=== PATIENT | female | born 1985 | race Caucasian/White ===

== ENCOUNTER → 2020-06-29 04:59 | Outpatient (CLI) | payer OTHER, SELFPAY ==
[2020-06-29 19:03] LABS: SARS-CoV-2 RNA PCR Negative
== END ==
PROVIDERS: Visit Provider Student in an Organized Health Care Education/Training Program
DX: Z01.812 Encounter for preprocedural laboratory examination (principal); Z20.822 Contact with and (suspected) exposure to COVID-19
CPT/HCPCS: C9803; U0003; U0005

== ENCOUNTER 2020-07-01 01:56 | Day surgery (SDC) | payer OTHER, SELFPAY ==
[2020-06-28 17:01] VITALS: BMI 29.1
--- NOTE | 2020-06-30 10:03 | PM.IMHP ---
H&P: HPI History of Present Illness Date/Time: 06/30/20 10:03 35-year-old who presents for suction D&C for incomplete . Patient initially presented to the office for viability ultrasound. Patient states she had positive home test and pelvic Shantelle. hormone levels were drawn on 06/03/20 and were found to be 51,700. Pelvic ultrasound in the office showed a gestational sac but no yolk sac or embryo. Patient then went on to begin having vaginal bleeding. Follow-up beta hCG level was 8540. patient elected to have surgical management of incomplete Chief Complaint: spontaneous Review of Systems Cardiovascular: Cardiovascular: Denies chest pain, Denies leg edema, Denies palpitations, Denies dyspnea and Denies dyspnea on exertion Respiratory: Respiratory: Denies cough, Denies dyspnea and Denies dyspnea on exertion Gastrointestinal: Gastrointestinal: Denies abdominal pain, Denies constipation, Denies diarrhea, Denies nausea and Denies vomiting Genitourinary: Genitourinary: Denies hematuria, Denies urinary frequency, Denies dysuria, Denies pelvic pain, Denies urinary incontinence and Denies vaginal discharge Neurologic: Reports system reviewed and no additional complaints, except as documented Psychiatric: Psychiatric: Reports no additional psychiatric complaints Endocrine: Endocrine: Denies palpitations PMFSH Social History Social History Years smoked: 6 Smoking status: Current every day smoker Tobacco type: cigarettes Spiritual care concerns: No Meds Home Medications and Allergies Home Medications Medication Instructions Recorded Confirmed Type citalopram [Celexa] 20 mg PO HS 06/28/20 06/28/20 History dextroamphetamine-amphetamine 30 mg PO DAILY 06/28/20 06/28/20 History [Adderall XR] dextroamphetamine-amphetamine 15 mg PO DAILY 06/28/20 06/28/20 History [Adderall] lamotrigine 300 mg PO HS 06/28/20 06/28/20 History ondansetron 4 mg PO PRN PRN 06/28/20 06/28/20 History sumatriptan succinate [Imitrex] 100 mg PO PRN PRN 06/28/20 06/28/20 History trazodone 100 mg PO HS 06/28/20 06/28/20 History Allergies Allergy/AdvReac Type Severity Reaction Status Date / Time aspirin Allergy Numbness Verified 06/28/20 17:15 codeine Allergy Rash Verified 06/28/20 17:15 Exam Const: General: no acute distress Eyes: EOM: EOMs intact bilaterally Neck: Neck: supple Thyroid: thyroid normal Chest: Breast/axilla inspection: normal inspection of the breasts Breast/axilla palpation: normal palpation of the breasts, normal palpation of the axillae and no axillary lymphadenopathy Resp: Effort & Inspection: normal respiratory effort Auscultation: clear to auscultation bilaterally Cardio: Rate: regular rate Rhythm: regular rhythm GI: Inspection: non-distended GI Palp: Yes Soft to palpation, No Tenderness to palpation present (GI) and No Guarding due to palpation present (GI) Auscultation: normal bowel sounds : General: No bladder normal to palpation External Female Exam: normal external appearance Speculum Exam - Vagina: normal vaginal discharge and No vaginal bleeding Speculum Exam - Cervix: nontender Bimanual exam- vagina & uterus: No bladder normal to palpation and No Cervical tenderness present OB/external & speculum: No vaginal bleeding Skin: General skin exam: normal color and no rashes or lesions noted Neuro: Cognition (Neuro): normal cognition Speech: normal speech Extrem: General: normal to inspection and no edema Psych: Mental Status: mental status grossly normal Affect: normal affect Assessment and Plan Assessment and plan (1) Spontaneous : Code(s): O03.9 - Complete or unspecified spontaneous without complication Status: Acute Assessment and Plan: patient reports positive test in March. Beta-hCG level [id number] on 06/03/20 to 8549 on 06/25/20 Rh+ status pelvic US showed gestational s
--- NOTE | 2020-07-01 07:29 | WPDHPUPDATE1 ---
History and Physical Update Update Date/Time: 07/01/20 07:29 History and Physical has been reviewed, including an updated exam of the patient. There are NO changes in the patient's condition. Risks, benefits, and alternatives have been discussed and questions answered. Patient agrees to proceed with procedure.
[2020-07-01] MEDS: ACETAMINOPHEN 500 MG TABLET 1000 MG PO (07:30)
[2020-07-01] MEDS: LACTATED RINGERS 1,000 ML 30 ML IV CONT (07:30)
[2020-07-01 07:42] LABS: Hematocrit 29.9 % (37.0-47.0)
[2020-07-01 07:47] VITALS: BP 102/67; PULSE 91; RESP 18; TEMP 36.6; O2SAT 100
--- NOTE | 2020-07-01 07:55 | WPDANESEPPF ---
Anes - Initial Pre Proc Eval Procedure: Operation Date: 07/01/20 08:30 Proposed Procedures p Suction Dilatation And Curettage - Adilson Bates MD Date/Time: 07/01/20 07:55 Surgeon: Adilson Bates MD Pre Op Diagnosis: Missed AB Patient Data Age: 35 Gender: F Height: 5 ft Weight: 66.35 kg Last Vital Signs Temp 36.6 C 07/01/20 07:47 Pulse 91 07/01/20 07:47 Resp 18 07/01/20 07:47 BP 102/67 07/01/20 07:47 Pulse Ox 100 07/01/20 07:47 Allergies Allergy/AdvReac Type Severity Reaction Status Date / Time aspirin Allergy Numbness Verified 07/01/20 07:45 codeine Allergy Rash Verified 07/01/20 07:45 Home Medications Medication Instructions Recorded Confirmed Type citalopram [Celexa] 20 mg PO HS 06/28/20 07/01/20 History dextroamphetamine-amphetamine 30 mg PO DAILY 06/28/20 07/01/20 History [Adderall XR] dextroamphetamine-amphetamine 15 mg PO DAILY 06/28/20 07/01/20 History [Adderall] lamotrigine 300 mg PO HS 06/28/20 07/01/20 History ondansetron 4 mg PO PRN PRN 06/28/20 07/01/20 History sumatriptan succinate [Imitrex] 100 mg PO PRN PRN 06/28/20 07/01/20 History trazodone 100 mg PO HS 06/28/20 07/01/20 History Laboratory Tests 07/01/20 07:28 Hgb 10.0 g/dL L g/dL (12.0-15.0) Hct 29.9 % L % (37.0-47.0) Patient hx anesthesia problems: none Family hx anesthesia problems: none PMFSH Past Medical History Medical History ADHD Bipolar 1 disorder Social History Social History Years smoked: 6 Smoking status: Current every day smoker Tobacco type: cigarettes Spiritual care concerns: No Anes - Eval Final PreProcedure Day of Procedure 07/01/20 07:55 Patient weight: overweight Heart: regular rate and rhythm Lungs: clear to auscultation Airway: Mallampati scale class III Neurological: alert and oriented Last oral intake: >/= 8 hours ASA classification: III Emergent: no Anesthetic plan: proceed Anesthesia type and monitoring: general GIVS and standard monitoring Informed Consent: The patient's anesthetic plan and its attendant risks and benefits were discussed with the patient/family/POA. Questions were solicited and answers provided to the satisfaction of the patient/family/POA.
--- NOTE | 2020-07-01 08:26 | PM.PROC ---
Procedure Note - Detailed Date of procedure: 07/01/20 Pre-op diagnosis: Missed AB Post-op diagnosis: same Procedure performed: Suction dilation and curettage Description of procedure: Antibiotics: Doxycycline Findings: uterus equal to dates, cervix dilated, intrauterine MAB Complications: none Specimens: endometrial contents- products of conception EBL: 25 mL Indications: Patients was found to have a gestational sac but never developed a yolk sac or pole on pelvic US. Pt was experiencing abdominal cramping and vaginal bleeding. She elected for surgical management via Suction D&C. Procedure: The patient was taken to the operating room after a missed had been noted on on transvaginal ultrasound. The risks, benefits and alternatives of the procedure were reviewed with the patient and informed consent was obtained. The patient was taken to the OR and anesthesia was noted to be adequate. The patient was placed in the dorsolithotomy position. Pelvic exam was performed with findings noted above. The patient was prepped and draped in the usual sterile fashion. Cottrell retractors were placed anteriorly and posteriorly in the vagina and the cervix was grasped with an Tenaculum clamp. A paracervical block was performed. The cervix was dilated further to allow for passage of a 8mm suction curette. The 8mm suction curette was gently advanced to the fundus, suction was activated, and the tip was rotated while being withdrawn to clear the uterus of products. This suction process was repeated 4 additional times due to the quantity of material in the uterus. The sharp curette was introduced and advanced to the fundus to remove any remaining products. The suction curette was reintroduced one final time to ensure all products had been removed. The Tenaculum clamp was removed. Good hemostasis was noted. Instrument, sponge, and sharp counts were correct. Patient tolerated the procedure well and was taken to the recovery room in stable condition. Anesthesia: GLMA Surgeon: Adilson Bates MD Estimated blood loss (mL): 25 Urine output (mL): 25 Drains: No Packing: No Pathology: yes (products of conception ) Complications: No immediate complications Condition: stable Disposition: PACU Findings: intrauterine produts of conception
[2020-07-01 08:30] VITALS: BP 107/68; PULSE 98; RESP 14; O2SAT 96
[2020-07-01 09:00] VITALS: BP 101/66; PULSE 95; RESP 14
[2020-07-01 09:05] VITALS: BP 103/71; PULSE 87; RESP 14
== END 2020-07-01 09:15 | disposition home or self-care (01) ==
PROVIDERS: Visit Provider Student in an Organized Health Care Education/Training Program
PROC: (CPT 59820; principal; 2020-07-01 08:30)
DX: O02.1 Missed abortion (principal); F90.9 Attention-deficit hyperactivity disorder, unspecified type; F31.9 Bipolar disorder, unspecified; F17.210 Nicotine dependence, cigarettes, uncomplicated
CPT/HCPCS: 59820; 36415; 85014; 85018; 85461; 88305; A9270; C9803; J2250; J2704; J3010; J7120; U0003; U0005

== ENCOUNTER 2023-02-25 13:03 | Emergency (ER) | payer OTHER, SELFPAY ==
--- NOTE | ~2023-02-25 | CT_ITS ---
EXAMINATION: CT abdomen pelvis w con DATE: 02/25/2023 18:56 INDICATION: Suprapubic tenderness, nausea, vomiting and diarrhea. Blood in stool. TECHNIQUE: Computed tomography (CT) of the abdomen and pelvis was performed with 100 cc Omnipaque 350 intravenous contrast. The dose-length product was 385.51 mGy-cm. Automated exposure control and iter ative reconstruction technique were employed. COMPARISON: None. FINDINGS: Lung bases unremarkable. Heart size normal. No significant pleural or pericardial effusion. No significant vascular abnormality. There is abnormal thickening of the sigmoid colon with mild niesha rounding inflammatory change, consistent with colitis. Cannot exclude underlying mass. Small amount o f free fluid in the pelvis. No free air. The liver, spleen, pancreas, adrenal glands and kidneys are unremarkable. Gallbladder is present. There are gallstones. No focal lytic or blastic lesions. IMPRESSION: 1. Abnormal thickening of the sigmoid colon, suspicious for colitis, most likely infectious or inflam matory. Underlying mass not excluded. Recommend follow-up clinical evaluation with patient's conditio n permits. 2: Cholelithiasis. Reviewed, dictated and finalized at location A. [facility] IMPRESSION: 1. Abnormal thickening of the sigmoid colon, suspicious for colitis, most likel y infectious or inflammatory. Underlying mass not excluded. Recommend follow-up clinical evaluation with patient's condition permits. 2: Cholelithiasis.
[2023-02-25 13:06] VITALS: BP 115/74; PULSE 120; RESP 20; TEMP 36.7; O2SAT 100
--- NOTE | 2023-02-25 17:59 | ED.GENADULT ---
HPI - General Adult General Chief complaint: Nausea/Vomiting/Diarrhea Stated complaint: vomiting and diarrhea/abd pain/blood in stool Time Seen by Provider: 02/25/23 17:45 Source: patient Mode of arrival: ambulatory Limitations: no limitations History of Present Illness HPI narrative: This is a 37-year-old female who presents to the ED with chief complaint of N/V/D beginning this morning. Reports she when out with friends yesterday and had tacos but no one else has any of the symptoms. Reports abdominal cramping especially in the lower abdomen. Reports it is worse with bowel movements. Reports she has seen a bit of bright red blood in the diarrhea. Denies any fevers, chills, lightheadedness, syncope, chest pain, shortness of breath, urinary problems. Related Data Home Medications Medication Instructions Recorded Confirmed citalopram 20 mg tablet (Celexa) 20 mg PO HS 06/28/20 07/01/20 dextroamphetamine-amphetamine 15 15 mg PO DAILY 06/28/20 07/01/20 mg tablet (Adderall) dextroamphetamine-amphetamine ER 30 mg PO DAILY 06/28/20 07/01/20 30 mg 24hr capsule,extend release (Adderall XR) lamotrigine 150 mg tablet 300 mg PO HS 06/28/20 07/01/20 ondansetron 4 mg disintegrating 4 mg PO PRN PRN Migraine Headache 06/28/20 07/01/20 tablet sumatriptan succinate 100 mg 100 mg PO PRN PRN Migraine Headache 06/28/20 07/01/20 tablet (Imitrex) trazodone 50 mg tablet 100 mg PO HS 06/28/20 07/01/20 Allergies Allergy/AdvReac Type Severity Reaction Status Date / Time aspirin Allergy Numbness Verified 02/25/23 13:08 codeine Allergy Rash Verified 02/25/23 13:08 Review of Systems Review of Systems: All systems as dictated in HPI [facility] Past Medical History Medical History ADHD Bipolar 1 disorder Social History Social History Years smoked: 6 Smoking status: Current every day smoker Tobacco type: cigarettes Spiritual care concerns: No Exam Narrative: GENERAL: Well-appearing, well-nourished, and in no acute distress. HEAD: Normocephalic, atraumatic. EYES: PERRLA and EOMI. ENT: Nares clear, no rhinorrhea or epistaxis. Mucous membranes moist. Oropharynx without tonsillar hypertrophy exudate or other lesions. NECK: Supple. No adenopathy or masses. CHEST: No respiratory distress. Clear to auscultation. No wheezes rales or rhonchi HEART: Regular rate and rhythm. No murmur heard. Normal peripheral pulses. ABDOMEN: Mild suprapubic tenderness. soft, otherwise nontender, nondistended, normal active bowel sounds. Negative peritoneal signs. MSK: Normal range of motion. No edema. SKIN: Warm, dry, no rash. NEURO: Alert and oriented x3. No focal deficits. PSYCH: Normal mood and affect. Course Vital Signs Vital signs: Vital Signs Temperature 98.0 F 02/25/23 13:06 Pulse Rate 120 H 02/25/23 13:06 Respiratory Rate 20 02/25/23 13:06 Blood Pressure 115/74 02/25/23 13:06 Pulse Oximetry 100 02/25/23 13:06 Oxygen Delivery Room Air 02/25/23 13:06 Temperature 98.0 F 02/25/23 13:06 Pulse Rate 101 H 02/25/23 20:22 Respiratory Rate 16 02/25/23 20:22 Blood Pressure 123/87 02/25/23 20:22 Pulse Oximetry 98 02/25/23 20:22 Oxygen Delivery Room Air 02/25/23 13:06 Medical Decision Making [facility] Narrative Medical decision making narrative: This is a 29-year-old female who presents to the ED with chief complaint of N/V/D beginning yesterday. She does note some bright red diarrhea. Vitals show initial tachycardia but hemodynamically stable and afebrile. Exam reveals suprapubic tenderness. Lab work shows mildly elevated white count 11.2, normal CMP. UA shows some red blood cells and bacteria but is contaminated with squamous cells. She is not having any urinary symptoms. CT abdomen/pelvis with IV contrast: 1. Abnormal thickening of the sigmoid colon, susp
[2023-02-25 18:21] LABS: Basophils Percent Auto 0.4 % (0.2-1.2); Eosinophils Absolute Auto 0.1 K/mm3 (0-0.3); Eosinophils Percent Auto 0.8 % (0-4.4); Hematocrit 40.2 % (37.0-47.0); Hemoglobin 12.9 g/dL (12.0-15.0); Immature Granulocyte Absolute 0.03 K/mm3 (0.00-0.031); Immature Granulocyte Percent A 0.3 % (0-0.5); Lymphocytes Absolute Auto 2.28 K/mm3 (0.9-3.2); Lymphocytes Percent Auto 20.4 % (18.3-44.2); Mean Corpuscular HGB Conc 32.1 g/dl (32-36); Mean Corpuscular Volume 87.4 fl (80-100); Mean Platelet Volume 10.1 fl (7.4-10.4); Monocytes Absolute Auto 0.9 K/mm3 (0.1-0.6); Monocytes Percent Auto 7.9 % (2.6-8.5); Neutrophils Absolute Auto 7.9 K/mm3 (1.3-6.7); Neutrophils Percent Auto 70.2 % (45.5-73.1); Platelet Count Result 354 k/mm3 (150-375); Red Cell Distribution Width 14.3 % (11.5-14.5); White Blood Count 11.2 K/mm3 (4.5-10.0)
[2023-02-25] MEDS: SODIUM CHLORIDE 0.9% IV 1,000 ML 999 ML IV CONT (18:27)
[2023-02-25] MEDS: ONDANSETRON INJ 4 MG/2 ML VIAL IV PUSH (18:27)
[2023-02-25 18:28] LABS: Appearance Urine Cloudy (Clear); Bacteria Urine 2+ /hpf; Bilirubin Urine Negative (Negative); Blood Urine 2+ (Negative); Color Urine Yellow (Yellow); Glucose Urine UA Negative (Negative); Ketones Urine Trace mg/dL (Negative); Leukocyte Esterase Ur Negative LEU/UL (Negative); Nitrate Urine Negative (Negative); Non Pathogenic Casts 0-2; Protein Urine Negative (Negative); RBC Urine 21-50 /hpf (0-2); Specific Grav Ur 1.022 (1.001-1.035); Squamous Epithelial Cell Urine Many /hpf (Few); WBC Urine 0-5 /hpf
[2023-02-25 18:30] LABS: Add Urine Microscopic? YES
[2023-02-25 18:37] LABS: Alanine Aminotransferase 21 U/L (6-35); Albumin Level 4.5 g/dL (3.5-5.1); Alkaline Phosphatase 53 U/L (38-126); Anion Gap 8 mmol/L (8-16); Aspartate Amino Transferase 27 U/L (14-36); Bilirubin,Total 0.7 mg/dL (0.2-1.3); Blood Urea Nitrogen 10 mg/dL (7-17); Calcium 9.2 mg/dL (8.4-10.2); Carbon Dioxide 27 mmol/L (22-30); Chloride 103 mmol/L (98-107); Estimated CRCL calculation 81 ml/min; Estimated Glomerular Filt Rate > 60; Glucose 91 mg/dL (65-110); Potassium 3.7 mmol/L (3.4-5.0); Sodium 138 mmol/L (137-145)
[2023-02-25 20:22] VITALS: BP 123/87; PULSE 101; RESP 16; O2SAT 98
== END 2023-02-25 20:26 | disposition home or self-care (01) ==
PROVIDERS: Emergency Provider Physician Assistant
DX: K52.9 Noninfective gastroenteritis and colitis, unspecified (principal); F90.9 Attention-deficit hyperactivity disorder, unspecified type; F31.9 Bipolar disorder, unspecified; F17.210 Nicotine dependence, cigarettes, uncomplicated
CPT/HCPCS: 36415; 74177; 80053; 81001; 81025; 85025; 96361; 96374; 99284; J2405; J7030; Q9967